=== PATIENT | male | born 1945 | race Caucasian/White ===

== ENCOUNTER 2016-11-06 21:05 | Emergency (ER) | payer OTHER ==
[~2016-11-06] VITALS: Ht 180.3 cm; Wt 93.4 kg
[~2016-11-06 21:05] MED LIST: ALBU8.5H3 INH; AMLO5TAB2 PO; FURO-93 PO; LEVO750T26 PO; LOSA50TA2 PO; TAMS0.4C2 PO
[2016-11-06] MEDS ORDERED: AMLO10TA2 PO (21:33)
[2016-11-06] MEDS ORDERED: OXYMETAZOLINE NASAL SPRAY 0.05%, 15ML ONE (21:52)
[2016-11-06] MEDS ORDERED: LIDOCAINE 1%-EPI 1:100K, 50ML ONE (21:52)
[2016-11-06] MEDS ORDERED: OXYMETAZOLINE NASAL SPRAY 0.05%, 15ML NAS ONE (22:00)
[2016-11-06] MEDS ORDERED: LIDOCAINE 1%-EPI 1:100K, 20ML SQ ONE (22:00)
[2016-11-06] MEDS ORDERED: LIDOCAINE 1%-EPI 1:100K, 50ML SQ ONE (22:11)
[2016-11-06 23:42] VITALS: BP 149/83
== END 2016-11-06 23:44 | disposition home or self-care (01) ==
LOC: ED 23:38
DX: R04.0 Epistaxis (principal); I10 Essential (primary) hypertension
CPT/HCPCS: 30901; 93005; 99284; J3490